=== PATIENT | male | born 1990 | race Caucasian/White ===

== ENCOUNTER 2018-12-29 14:38 | Emergency (ER) | payer OTHER | END 2018-12-29 17:10 | disposition left against medical advice (07) | LOC: ED 14:38 | DX: Z53.21 Procedure and treatment not carried out due to patient leaving prior to being seen by health care provider (principal) ==

== ENCOUNTER 2018-12-30 04:35 | Emergency (ER) | payer OTHER ==
[~2018-12-30] VITALS: Ht 175.3 cm; Wt 79.4 kg
[2018-12-30 04:39] VITALS: Ht 175.3 cm; Wt 79.4 kg
[2018-12-30 06:31] VITALS: BP 127/70
== END 2018-12-30 06:31 | disposition home or self-care (01) ==
LOC: ED 04:35
DX: R07.89 Other chest pain (principal); M79.672 Pain in left foot; F17.210 Nicotine dependence, cigarettes, uncomplicated
CPT/HCPCS: Q0092

== ENCOUNTER 2019-12-07 20:18 | Emergency (ER) | payer OTHER ==
[~2019-12-07] VITALS: Ht 175.3 cm; Wt 68.9 kg
[2019-12-07 20:24] VITALS: BP 142/80; Ht 175.3 cm; Wt 68.9 kg
== END 2019-12-07 21:49 | disposition left against medical advice (07) ==
LOC: ED 20:18
DX: N48.89 Other specified disorders of penis (principal)
CPT/HCPCS: 90715; J0696; J3486

== ENCOUNTER 2019-12-08 10:31 | Inpatient (IN) | payer OTHER ==
[~2019-12-08] VITALS: Ht 175.3 cm; Wt 69.9 kg
[2019-12-08 10:38] VITALS: Ht 175.3 cm; Wt 69.9 kg
--- NOTE | 2019-12-08 10:55 | NUR ---
PT BIB SISTER C/O PENILE PAIN S/P PUTTING "COCK RING" ON PENIS X 1WEEK. PER PT "I WAS SEEN YESTERDAY BUT LEFT BECAUSE I WAS HUNGRY. THIS IS HAS BEEN ON MY PENIS FOR ONE WEEK". PENIS NOTED INFLAMMED, RED AND DICHARGE AT HEAD OF PENIS AND BASE. PT DENIES ANY PROBLEM URINATING. PT AAOX4, RESP E/U, NO AD NOTED. AWAITING MD MAURO. WILL CONTINUE TO MONITOR.
--- NOTE | 2019-12-08 11:04 | NUR ---
MD CORREIA AT BEDSIDE AT THIS TIME. AWIATING FURTHER ORDERS.
--- NOTE | 2019-12-08 11:20 | NUR ---
LAB AT BEDSIDE FOR BLOOD CULTURE AT THIS TIME. WILL CONTINUE TO MONITOR.
--- NOTE | 2019-12-08 11:20 | NUR ---
PT REFUSED MEDICATION AND REPOTS "TAKE MY IV OUT I DONT NEED IT IN". MD BARKER AT BEDSIDE AT THIS TIME. WILL CONTINUE TO MONITOR.
[2019-12-08 11:48] LABS: PLATELET COUNT 353 x10^3mcL (130-400); RED CELL DISTRIBUTION WIDTH 12.5 % (11.5-14.5)
[2019-12-08 11:49] LABS: BAND NEUTROPHIL 0 % (0-10); BASOPHIL 1 % (0-2); CALCIUM 8.6 mg/dL (8.5-10.1); CARBON DIOXIDE 29.5 mmol/L (21-32); CHLORIDE SERUM 101 mmol/L (98-107); CREATININE SERUM 0.7 mg/dL (0.7-1.3); GFR1 > 60 mL/min; GLUCOSE SERUM 131 mg/dL (74-106); MONOCYTE 6 % (0-7); POTASSIUM SERUM 3.7 mmol/L (3.5-5.1); SEGMENTED NEUTROPHILS 72 % (37-75); SODIUM SERUM 136 mmol/L (136-145); rbc morphology (normal/abnorm) NORMAL (NORMAL)
[2019-12-08 11:54] LABS: ALKALINE PHOSPHATASE 123 U/L (46-116); ALT/SGPT 16 U/L (16-63); AST/SGOT 11 U/L (15-37); BILIRUBIN TOTAL 0.2 mg/dL (0.20-1.00); TOTAL PROTEIN, SERUM 7.1 g/dL (6.4-8.2)
--- NOTE | 2019-12-08 12:19 | NUR ---
MD CHANDRA AND MD CAMILO AT BEDSIDE DISCUSSING PLAN OF CARE AT THIS TIME. WILL CONTINUE TO MONITOR.
--- NOTE | 2019-12-08 12:51 | NUR ---
PT REQUESTED URINAL. PROVIDED ONE TO HIM
--- NOTE | 2019-12-08 13:02 | NUR ---
REPORT GIVEN TO CRYSTAL BENITES FROM OR. AWAITING FURTHER ORDERS. WILL CONTINUE TO MONITOR.
--- NOTE | 2019-12-08 13:04 | NUR ---
CLAIRFIED WITH PT ON LAST FOOD INTAKE AND PT REPORTS "I DONT KNOW LIKE 10 MINUTES BEFORE I GOT HERE". FASHION MODELDELMIS ROJAS MADE AWARE. WILL CONTINUE TO MONITOR.
--- NOTE | 2019-12-08 16:11 | NUR ---
RECEIVED PT VIA GURNEY FROM O/R, ACCOMPANIED BY RN AND TRANSPORTER. PT DROWSY, ORIENTED X 3 (PERSON, PLACE, PURPOSE), SLOW TO RESPOND; PT IS WITHDRAWN, RESPONDS TO SOME QUESTIONS BUT IGNORES MOST TEACHINGS, ADMITS TO HEARING VOICE OF GRANDMOTHER (CURRENTLY NOT HEARING VOICES). PT IS HOMELESS, SMOKES CIGARS, AND ADMITS TO METH USE. DENIES CHEST PAIN OR DISCOMFORT AT THIS TIME. NO ACUTE RESPIRATORY DISTRESS NOTED. F/C 16FR INSERTED 12/08/2019, DRAINING CLEAR YELLOW URINE, C/O "HESITANCY"; WHITE DISCHARGE NOTED TO PENILE HEAD AND CIRCULAR WOUND AROUND BASE 2/2 WASHER THAT WAS DIGGING INTO PT'S SKIN X1 WK (POSSIBLY LONGER) W/C WAS REMOVED RN ACCESS; WOUND COVERED W/ ABD PAD, MINIMAL SEROSANGUINOUS DRAINAGE; PT C/O PAIN UPON PALPATION; PENIS IS EDEMATOUS AND SEMI-SOFT. GENERALIZED WEAKNESS, AMBULATORY @ BASELINE, FALL RISK PROTOCOL IN PLACE. IV SITE LAC 18G, CDI. SIDE RAILS UP X 2, BED IN LOW POSITION, CALL LIGHT WITHIN REACH. WILL ENDORSE TO DELMIS NEW.
--- NOTE | 2019-12-08 16:38 | NUR ---
ASSISTED Pt TO BATHROOM FOR BM Pt STABLE DENIED ANY DIZZINESS STABLE AMULATION NOTED
[2019-12-08 17:17] VITALS: BP 130/84
--- NOTE | 2019-12-08 18:51 | NUR ---
Pt LYING IN BED TOLERATED DIET WELL. PETERSON CATHETER DRAINING TO GRAVITY ENZO URINE NOTED. PENIAL REMAINS SWOLLEN DRESSING IN PLACE Pt DENIES ANY PAIN AT THIS ITME. IV ON LAC PATENT AND INTACT NO REDNESS OR EDEMA. ALL NEEDS ATTENDED TO. SAFETY PRECAUTIONS IN PLACE. WILL ENDORSE CARE TO NIGHT RN
[2019-12-08 20:41] VITALS: BP 139/77
[2019-12-09 06:29] VITALS: BP 120/78
--- NOTE | 2019-12-09 07:00 | NUR ---
RECEIVED REPORT FROM NIGHT RN Pt DONNELL IN BED WITH EYES CLOSED BUT AROUSABLE IN NO APARENT DISTRESS. DRESSING INTACT TO PENILE CLEAN AND DRY. IV ON LAC PATENT AND INTACT. ON RA 100% LUNGS CTA BILAT. ABD SOFT AND FLAT ACTIVE IN ALL 4 QUADS. ALL NEEDS ATTENDED TO AT THIS TIME. BED IN LOWEST POSITION CALL LIGHT WITHIN REACH. WILL CONTINUE TO MONITOR.
[2019-12-09 09:10] LABS: CALCIUM 8.5 mg/dL (8.5-10.1); CARBON DIOXIDE 29.3 mmol/L (21-32); CHLORIDE SERUM 101 mmol/L (98-107); CREATININE SERUM 0.8 mg/dL (0.7-1.3); GFR1 > 60 mL/min; GLUCOSE SERUM 102 mg/dL (74-106); MAGNESIUM 1.9 mg/dL (1.8-2.4); PHOSPHOROUS 3.4 mg/dL (2.5-4.9); POTASSIUM SERUM 3.6 mmol/L (3.5-5.1); SODIUM SERUM 136 mmol/L (136-145)
--- NOTE | 2019-12-09 10:05 | NUR ---
DR MEZA AT BEDSIDE EVALUATING Pt
[2019-12-09 10:58] VITALS: BP 125/69
[2019-12-09 11:03] LABS: BASOPHIL % 0.3 % (0-2); PLATELET COUNT 339 x10^3mcL (130-400); RED CELL DISTRIBUTION WIDTH 13.4 % (11.5-14.5)
--- NOTE | 2019-12-09 12:41 | NUR ---
Pt C/O PAIN AT BASE OF PENIS ADMINISTERED MORPHINE IVP PER JUL Pt TOLERATED WELL. NO ADVERSE REACTIONS NOTED. SITTER AT BEDSIDE. WILL CONTINUE TO MONITOR.
[2019-12-09 13:34] VITALS: BP 117/63
--- NOTE | 2019-12-09 16:50 | NUR ---
Pt LYING IN BED RESTLESS BUT DIRECTABLE. EINSTRUCTED Pt TO NOT TOUCH HIS WOUND Pt CONTINUE TO TOUCH IT APPLIED LEONIDAS DRESSING. ALL NEEDS ATTENDED TO. BED IN LOWEST POSITION CALL LIGHT WITHIN REACH. WILL CONTINUE TO MONITOR.
[2019-12-09 17:24] VITALS: BP 117/73
--- NOTE | 2019-12-09 18:18 | NUR ---
SECOND ATTEMPT FOR DRESSING CHANGE Pt REFUSED. EDUCATED ON INFECTION RISK. Pt STILL REFUSED. PENIS STAMP MAKER NO S/S OF ANY INFECTION. ADMINISTERED MORPHINE IVP . Pt DENIES PAIN. PETERSON DRAINING TO GRAVITY . IV IN LAC PATENT AND INTACT. ALL NEEDS ATTENDED TO. WILL ENDORSE TO NIGHT RN
--- NOTE | 2019-12-09 19:15 | NUR ---
DR ENRIQUEZ AT BEDSIDE TO SEE PT. DISCUSSED PLAN OF CARE
--- NOTE | 2019-12-09 19:20 | NUR ---
RECIEVED PT RESTING IN BED WITH NO ACUTE DISTRESS NOTED FROM SHAQ RN, ASSESSMENT PERFORMED AT THIS TIME,(SEE SHIFT ASSESSMENT) PT IS A/OX4 NO COMPLAINTS OF BETTENCOURT OR DIZZINESS AT THIS TIME, PT ASKED IF IN PAIN AND REFUSED TO ANSWER, PT RESISTIVE TO CARE, NO SOB NOTED AT THIS TIME, IV TO THE LAC, ALL NEEDS ATTENDED TO AT THIS TIME, SAFETY PRECAUTIONS IN PLACE, WILL CONTINUE TO MONITOR
--- NOTE | 2019-12-09 19:35 | NUR ---
PT REFUSING WOUND CARE AT THIS TIME.
--- NOTE | 2019-12-09 20:22 | NUR ---
PT REFUSING ALL MEDICATIONS DR CAMARGO INFORMED.
--- NOTE | 2019-12-10 00:10 | NUR ---
PT RESTING IN BED WITH NO ACUTE DISTRESS NOTED, PT STILL REFUSING DRESSING ON PENILE WOUND. DR AWARE PT UNCOOPERATIVE WITH CARE
--- NOTE | 2019-12-10 04:00 | NUR ---
PT STILL REFUSING ABX, PT EDUCATED AGAIN TO NEED FOR MEDICATION BUT STILL REFUSING.
--- NOTE | 2019-12-10 04:34 | NUR ---
UPDATED DR CABRERA ABOUT PTS RESISTING ALL CARE, VITALS, MEDS, DRESSING CHANGES.
[2019-12-10 05:45] VITALS: BP 123/78
--- NOTE | 2019-12-10 05:51 | NUR ---
PT RESTED IN BED THROUGH NIGHT, PT REFUSED ALL CARE THROUGH NIGHT AFTER MULTIPLE ATTEMPTS TO GIVE MEDICATIONS AND DRESS PENILE WOUND, PHYSICIANS MADE AWARE AND PT STILL REFUSING ALL CARE. VSS, WILL CONTINUE TO MONITOR AND ENDORSE CARE TO ONCOMING RN
--- NOTE | 2019-12-10 08:30 | NUR ---
THE PATIENT IS ALERT AND ORIENTED X 2-3. HE HAS A PETERSON CATHETER 16 LAO, DRAINING WELL TO GRAVITY. NEW ORDERS FROM MD FOR URINALYSIS, URINE DRUG SCREEN, OBTAINED AND SENT TO LABORATORY. THE PATIENT ALSO HAS A WOUND TO THE PENILE AREA. CLEANSED WITH NORMAL SALINE AND WRAPPED AROUND WITH BETADINE MD ORDERED. WRAPPED AROUND WITH GAUZE, KERLIX, AND COBAN. PATIENT FELT A STINGING SENSATION, BUT WENT AWAY AFTER A FEW MINUTES. THE PATIENT WAS GIVEN ALL MEDICATIONS, PER MD ORDERS. WILL CONTINUE TO MONITOR.
[2019-12-10 09:04] LABS: BASOPHIL % 0.5 % (0-2); PLATELET COUNT 353 x10^3mcL (130-400); RED CELL DISTRIBUTION WIDTH 13.2 % (11.5-14.5)
[2019-12-10 09:07] LABS: CALCIUM 8.6 mg/dL (8.5-10.1); CARBON DIOXIDE 29.7 mmol/L (21-32); CHLORIDE SERUM 104 mmol/L (98-107); CREATININE SERUM 0.6 mg/dL (0.7-1.3); GFR1 > 60 mL/min; GLUCOSE SERUM 101 mg/dL (74-106); MAGNESIUM 2.2 mg/dL (1.8-2.4); POTASSIUM SERUM 4.3 mmol/L (3.5-5.1); SODIUM SERUM 139 mmol/L (136-145)
[2019-12-10 09:44] VITALS: BP 107/68
[2019-12-10 12:41] VITALS: BP 132/87
[2019-12-10 15:32] LABS: UA SPECIFIC GRAVITY 1.015 (1.005-1.035); microscopic required? YES; urine erythrocyte 2+ (NEGATIVE)
[2019-12-10 15:53] LABS: AMPHETAMINE QUAL UR NONE DETECTED (See below)
[2019-12-10 17:42] VITALS: BP 122/81
--- NOTE | 2019-12-10 19:00 | NUR ---
PATIENT RECIEVED IN BED ALERT AND ORIENTED X 2-3. PATIENT ARGUMENATIVE WITH RN DURING CARE. RN EDUCATED PATIENT TO PLAN OF CARE AND NEED FOR COMPLIANCY. PATIENT REFUSED IV ANTIBIOTICS. RN EDUCATED OF DX ISCHEMIC PENIS. PATIENT SLOW DURING CONVERSATION. PATIENT REFUSED WOUND CARE TREATMENT TO PENILE WOUND. PATIENT REFUSED ABT THERAPY. PATIENT YELLING OUTLOUD DURING CARE. DR. STEARNS NOTIFIED OF PATIENT NONCOMPLIANCY. INFORMED PHYSICIAN PATIENT UNCOOPERATIVE WITH CARE. PATIENT REFUSED IV ABT ZOSYN, VANCOMYCIN. REPORTED PATIENT BEHAVIOR OF NONCOMPLIANCE. FALL AND SAFETY PRECAUTIONS MAINTAINED.
--- NOTE | 2019-12-11 | NUR ---
PATIENT SLEEPING IN BED. REFUSED ALL MEDICATION. PATIENT ARGUMENATIVE WITH STAFF REFUSED RN PLAN OF CARE. PATIENT REQUEST FOR ROOM DOOR AND NO INTERACTIONS WITH STAFF. RESPIRATIONS EVEN AND NONLABORED. NO ACUTE DISTRESS. PATIENT REMAINS UNCOMPLAINT. FALL AND SAFETY PRECAUTIONS MAINTAINED.
--- NOTE | 2019-12-11 06:50 | NUR ---
PATIENT REFUSED TO SIGN REFUSAL TO PERMIT MEDICAL TREATMENT, IV ANTIBOTICS VANCOMYCIN AND ZOSYN. INFORMED PATIENT PHYSICIAN CHINTAN AND CHARGE NURSE NICOLE BENITES REGARDING PT REFUSAL TO PERMIT MEDICAL TREATMENT.
[2019-12-11 08:52] VITALS: BP 134/80
[2019-12-11 11:48] LABS: BASOPHIL % 0.6 % (0-2); PLATELET COUNT 384 x10^3mcL (130-400); RED CELL DISTRIBUTION WIDTH 13.3 % (11.5-14.5)
[2019-12-11 11:58] LABS: CARBON DIOXIDE 33.7 mmol/L (21-32); CHLORIDE SERUM 101 mmol/L (98-107); CREATININE SERUM 0.8 mg/dL (0.7-1.3); GFR1 > 60 mL/min; GLUCOSE SERUM 124 mg/dL (74-106); POTASSIUM SERUM 3.7 mmol/L (3.5-5.1); SODIUM SERUM 139 mmol/L (136-145)
--- NOTE | 2019-12-11 15:19 | NUR ---
At 0800, Pt refused nursing head to toe assessment after teaching.
--- NOTE | 2019-12-11 16:20 | NUR ---
Initial Nutrition Assessment: 252A NEW, RYAN 29M HR Consult: wound care Dx: Ischemic penis PMHx: Psychiatric disorder, schizophrenia PSHx: none Labs: (12/09) WBC 12.3H, Cr 0.6L, (12/07) AST 11L, Alk ph 123H, alb 3L Meds: Desyrel, Vancocin, Zosyn PRN meds: morphine, Zyprexa Diet: Regular diet PO intake since admission: 50-100% x 8 meals with average PO intake of 87.5% Ht: 175.26cm/69in Wt: 69.853kg/154lbs BMI: 22.7 Bed scale: not accessible IBW: 72.73kg/160lbs %IBW: 96.05% UBW: unknown Age: 29 Food Allergies: unknown Edema: edema noted to feet Last BM: 12/07 Skin: wound to penile head and circular wound around base of penis Jose: 20 Per H and P (12/07), Patient is a 29-year-old homeless male with a history of psychiatric disorder including schizophrenia who presented with ischemic injury of the penis due to constricting band at the base that has been left on approximately 1 week however may be longer. He states that he does have trouble voiding currently but however yesterday he was doing fine. He was previously in the ER however he left AMA and now returns after being urged by family member. Patient denies any recent covid contacts or travel. he will be admitted for surgical removal of the constricting band. Pt was admitted with dx: ischemic penile injury, h/o schizophrenia, moderate PCM, DVT RD Note (12/10) Per progress note (12/09), pt refused wound care last night, pt tolerating oral intake and stated that he was still hungry. Pt was seen lying in bed but not arousable. Pt's leg was on the cover of bed scale, so RD was not able to obtain bed scale weight. Per pt's RN, pt was eating 100% of his breakfast today, and pt requested more food because he was hungry. Pt did not exhibit signs of GI distress or chewing/swallowing difficulty. Problem with: N/V/D/C: none per RN Problems with: Chewing: Swallowing: None per RN Current appetite: good per RN Recent wt change: unknown %wt change: unknown Height: unknown Vitamin/Supplement use: unknown Special diet at home: unknown Physical activity: unknown Nutrition education given (specify specific nutrition education and handout given): not given at this time Food-drug interactions? Education given? n/a Estimated Nutritional Needs Based on current body weight (70kg) Energy: 2848-0310 kcal/day (30-35 kcal/kg for optimal wound healing) Protein: 72-108 g/day (1.25-1.5 g/kg for optimal wound healing) Fluid: 6640-7433 mL/day (1 mL/kcal) Nutrition Diagnosis: 1. Increased energy and protein needs r/t skin integrity a/e/b pt has wound to penile head and base of penis. Intervention 1. Recommend continue regular diet as tolerate 2. Recommend Uri BID for wound healing Recommendation will be followed up with MD. Monitor/Evaluate Goal: PO intake at least 75% of estimated needs Monitor: PO intake, Labs, GI function F/U in 3-5 days as moderate risk 8/6-8
--- NOTE | 2019-12-11 16:23 | NUR ---
1. Recommend continue regular diet as tolerate 2. Recommend Uri BID for wound healing Recommendation will be followed up with MD.
[2019-12-11 17:10] VITALS: BP 131/84
--- NOTE | 2019-12-11 19:07 | NUR ---
Pt is currently in bed sleeping. Pt refused head to toe assessment this shift. Requested F/C to be remove so he can go out for smoke. Pt made aware he's in the hospital and cannot go out for smoke due to his safety and will report to his doctor to order him Nicotine patch which pt agreed on Nicotine patch. Above reported to Dr Alfred who ordered Nicotine patch for pt. Pt then agreed to keep f/c in. Pt refused Zosyn and Vanco this afternoon-Dr Brito notified. Pt only eat and sleep. . Bed in low position and call light within reach. Will endorse care to oncoming shift RN.
--- NOTE | 2019-12-11 19:25 | NUR ---
CARE ASSUMED FROM OUTGOING RN. PT RESTING COMFORTABLY IN BED WITH EYES CLOSED. NO ACUTE DISTRESS NOTED. EVEN AND UNLABORED RESPIRATIONS ON RA. MEDSURG PT. IVL INTACT. PETERSON IN PLACE, DRAINING YELLOW URINE VIA GRAVITY. BED IN LOWEST POSITION. SIDE RAILS UPX2. CALL LIGHT WITHIN REACH. WILL CONTINUE TO MONITOR.
[2019-12-11 19:59] VITALS: BP 128/69
--- NOTE | 2019-12-12 00:09 | NUR ---
PT RESTING COMFORTABLY IN BED WITH EYES CLOSED. NO ACUTE DISTRESS NOTED. EVEN AND UNLABORED RESPIRATIONS ON RA. PETERSON PATENT DRAINING YELLOW URINE VIA GRAVITY. BED IN LOWEST POSITION. SIDE RAILS UPX2. CALL LIGHT WITHIN REACH. WILL CONTINUE TO MONITOR.
[2019-12-12 05:32] VITALS: BP 123/68
--- NOTE | 2019-12-12 06:27 | NUR ---
PT RESTED COMFORTABLY IN INTERVALS THROUGHOUT THE SHIFT. ALL NEEDS TENDED TO AND MET. ALL SCHEDULED MEDICATIONS GIVEN. EVEN AND UNLABORED RESPIRATIONS ON RA. REFUSED WOUND CARE AT THIS TIME, STATED WANTED TO SLEEP AND NOT BE DISTURB. PETERSON PATENT DRAINING YELLOW URINE VIA GRAVITY. BED IN LOWEST POSITION. SIDE RAILS UPX2. CALL LIGHT WITHIN REACH. WILL ENDORSE TO ONCOMING SHIFT.
[2019-12-12 08:28] VITALS: BP 133/83
--- NOTE | 2019-12-12 09:20 | NUR ---
Wound care evaluation not done. pt. refused. pt. is aax4.
[2019-12-12 12:16] VITALS: BP 127/87
[2019-12-12 16:18] VITALS: BP 121/76
--- NOTE | 2019-12-12 18:50 | NUR ---
Pt currently in bed on the phone talking to someone. Pt refused head to toe assessment. Pt agreed for nurse to apply Nicotine patch on this morning but refused IV Vanco and Zosyn this afternoon. Pt has order for nurse to remove dressing from penis and apply Bacitracin but pt refused. Pt informed nurse the doctor came in and removed the dressing and will not allow any one to touch him. Bed in low position and call light within reach. Will continue to monitor and endorse care to oncoming shift.
[2019-12-12 20:00] VITALS: BP 116/72
[2019-12-13 05:34] VITALS: BP 121/79
--- NOTE | 2019-12-13 07:46 | NUR ---
RECEIVED PT FROM NIGHT NURSE. PER SHIFT CHANGE REPORT, PT HAS BEEN UNCOOPERATIVE AND REFUSING CARE. GREETED PT AND WORKED TOWARD MEETING ALL BASIC NEEDS. WILL ASSESS WOUNDS FURTHER IF COOPERATIVE. CURRENTLY EATING BREAKFAST. APPEARS COMFORTABLE AND DOES NOT CONFIRM BEING IN PAIN WHEN ASKED. PETERSON CATHETER DRAINING YELLOW URINE. SAFETY PRECAUTIONS IN PLACE. WILL CONTINUE TO MONITOR.
[2019-12-13 08:28] VITALS: BP 156/69
[2019-12-13 18:36] VITALS: BP 127/69
--- NOTE | 2019-12-13 19:30 | NUR ---
WOUND CARE WAS DONE @1200. DRESSING WAS TREATED WITH NS AND REMOVED ORDERED. WOUND BED WAS PINK WITH MINIMAL BLOOD AND NO SLOUGH PRESENT. BACITRACIN OINTMENT WAS APPLIED ORDERED. PT WAS EDUCATED ABOUT POSSIBLE COMPLICATIONS OF WORSENING INFECTION. HE VERBALIZED UNDERSTANDING AND HE ALLOWED AN IV START IN HIS RFA. IV ABX WERE INFUSED ORDERED AND NOW SALINE LOCKED. IV SITE WNL AND PATENT. PETERSON CATHETER WAS DC ORDERED AT THE TIME OF WOUND CARE. HE HAS BEEN VOIDING NORMALLY SINCE THEN AND IS AMBULATORY TO BATHROOM. BM DURING SHIFT. HE SIGNED RELEASE TO BE DC TO FORMER HOMELESS SITUATION, GIVEN BY KAYLA. HE WAS GIVEN INSTRUCTIONS ABOUT HOUSING HE PREFERS AND RETAINED PHONE NUMBER TO FIND OUT AVAILABILITY. CURRENTLY THERE IS NONE. CURRENTLY RESTING COMFORTABLY. SAFETY PRECAUTIONS IN PLACE. ENDORSED TO NIGHT NURSE.
--- NOTE | 2019-12-13 20:07 | NUR ---
REPORT FROM LALA BENITES. PT AXOX4. NO S/S OF DISTRESS OR DISCOMFRT. BREATHING EVEN ON RA 99% SPO2. CTA. GENERAL WEAKNESS BUT ABLE TO AMBULATE. IV IS RFA 22G SL NO S/S OF INFILTRATION. PT IS MS, NO C/O CP OR PALPITATIONS. PT DENIES PAIN. PT HAD A BM DURING THE DAY SHIFT. SKIN IS WARM AND DRY. PT HAS PENILE WOUND AT THE BASE WITH EDEMA, TREVOR. PT REFUSED EXAMINATION AT THIS TIME BUT DID SAY HE APPLIED BACITRACIN CREAM THIS AFTERNOON WITH THE DAY NURSE LALA. PT RADIAL AND PEDAL PULSES ARE STRONG. BED IN LOW POSITION, SIDE RAILS UPX2, CALL LIGHT WITHIN REACH.
[2019-12-13 20:21] VITALS: BP 119/73
--- NOTE | 2019-12-14 00:51 | NUR ---
PT RESTING, EYES CLOSED. NO S/S OF DISTRESS OR DISCOMFORT. PT TOLERATING ABX. PT BREATHING EVEN ON RA. 98% SPO2. IV PATENT, NO S/S OF INFILTRATION. BED IN LOW POSITION. SIDE RAIL UPX2, CALL LIGHT WITHIN REACH.
[2019-12-14 05:00] VITALS: BP 116/60
--- NOTE | 2019-12-14 05:53 | NUR ---
PT AWAKE. AXOX4 NO S/S OF DISTRESS OR DISCPMFORT. PT PULLED IV OUT AND IT WAS REPLACED LFA 20 G BLOOD RETURN PRESENT AND WAS ABLE TO FLUSH. PT BREATHING EVEN ON RA SPO2 99% MED SURG PT. PT DENIES PAIN AT THIS TIME. BED IN LOW POSITION, SIDE RAILS UPX2, CALL LIGHT WITHIN REACH. PT REFULSED BLOOD DRAW THIS MORNING. WILL CONTINUE TO MONITOR PATIENT AND OFFER SUPPORT.
--- NOTE | 2019-12-14 08:06 | NUR ---
RECEIVED PT FROM NIGHT NURSE. PT JUST WAKING UP AND EATING BREAKFAST. AAOX4. WOUND TIN TIE MACHINE OPERATOR AUTOMATIC. WILL APPLY OINTMENT SCHEDULED. HE DENIES PAIN CURRENTLY. INSTRUCTED TO USE CALL LIGHT AT BEDSIDE FOR ANY NEEDS. PER NIGHT NURSE, PT DC IV DURING THE NIGHT. NEW ACCESS IS ALSO ON RFA. HE IS AMBULATORY AND CAN PROVIDE SELF CARE FOR ADLS. SAFETY PRECAUTIONS IN PLACE. WILL CONTINUE TO MONITOR.
[2019-12-14 08:18] VITALS: BP 137/77
[2019-12-14] MEDS ORDERED: BACOINT TOP (10:50)
[2019-12-14] MEDS ORDERED: ZYP10 PO (10:50)
[2019-12-14] MEDS ORDERED: TRA50 PO (10:52)
[2019-12-14] MEDS ORDERED: CLEOCIN HCL300 MG PO (10:55)
[2019-12-14 13:21] VITALS: BP 137/77
--- NOTE | 2019-12-14 17:42 | NUR ---
PT WAS EDUCATED ABOUT CARE OF WOUND AND WAS ABLE TO DEMONSTRATE AND VERBALIZED UNDERSTANDING. THIS IS ALSO TRUE OF ALL OTHER DC INSTRUCTIONS, INCLUDING NEW MEDICATIONS, FOLLOW UP CARE, AND WHEN TO SEEK FURTHER EMS SERVICES. THE PT IS HOMELESS, IN COLLABORATION WITH CANDLE WRAPPING MACHINE OPERATOR AND CASE MANAGEMENT, WAS GIVEN CLOTHES TO WEAR, BUS PASSES FOR FOLLOW UP APPOINTMENTS, AND FOOD. WOUND CARE WAS DONE, WITH BACITRACIN APPLIED ORDERED, AND LEFT LUMBER GRADER. HE REFUSED SCHEDULED ABX. IV WAS DC WITH CATHETER INTACT. HE WAS AAOX4 AND AMBULATORY, ABLE TO SELF CARE AT DC.
== END 2019-12-14 17:42 | disposition home or self-care (01) | DRG 483 ==
LOC: ED 10:31 → MU 12:18
PROVIDERS: Emergency Medicine; Urology; ADMIT Internal Medicine; ATTEND Internal Medicine
PROC: 0VCS0ZZ Extirpation of Matter from Penis, Open Approach (ICD-10-PCS; principal; 2019-12-08 17:00)
DX: S39.848A Other specified injuries of external genitals, initial encounter (principal); E44.0 Moderate protein-calorie malnutrition; T79.A9XA Traumatic compartment syndrome of other sites, initial encounter; F20.9 Schizophrenia, unspecified; F15.10 Other stimulant abuse, uncomplicated; F19.90 Other psychoactive substance use, unspecified, uncomplicated; R33.9 Retention of urine, unspecified; Z56.0 Unemployment, unspecified; Z68.22 Body mass index [BMI] 22.0-22.9, adult; Z59.0 Homelessness; D72.829 Elevated white blood cell count, unspecified
CPT/HCPCS: G0378; J1630; J2175; J2250; J2270; J2543; J3010; J3370; J7050; J7120

== ENCOUNTER 2019-12-23 09:22 | Inpatient (IN) | payer OTHER ==
[~2019-12-23] VITALS: Ht 175.3 cm; Wt 71.7 kg
[~2019-12-23 09:22] MED LIST: BACOINT TOP; CLEOCIN HCL300 MG PO; TRA50 PO; ZYP10 PO
[2019-12-23 09:24] VITALS: Ht 175.3 cm; Wt 71.7 kg
--- NOTE | 2019-12-23 09:30 | NUR ---
PT BIB AMBULANCE BLS FOR 5150 HOLD. PER MEDIC ERICH BARR NOTED PT WALKING IN STREET WITH SHOPPING CART AND WAS PLACED ON HOLD. ERICH BARR CONTACTED PT SISTER AND PT REPROTED "I WANT TO JUMP OFF A BRIDGE". PT ARRIVED TO ROOM 5 AND DENIES ANY SI/HI AT THIS TIME. PT AAOX4, RESP E/U NO AD NOTED. ALL HARMFUL ITESM REMOVED FROM PT AND PLACED IN RADIO ROOM. PT IN CLOSE VIEW OF NURSES STATION. WILL CONTINUE TO MONITOR.
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
--- NOTE | 2019-12-23 09:36 | NUR ---
COLLECTED PATIENT ITEMS AND PUT IN RADIO ROOM
--- NOTE | 2019-12-23 09:47 | NUR ---
PROVIDED URINAL TO PT AT THIS TIME AND PT ABLE TO PROVIDE URINE SAMPLE AT THIS TIME. NO AD NOTED. WILL CONTINUE TO MONITOR. 500 CC URINE OUTPUT OF CLEAR YELLOW URINE NOTED.
--- NOTE | 2019-12-23 09:55 | NUR ---
XR AT BEDSIDE FOR XR OF LEFT WRIST AT THIS TIME.
--- NOTE | 2019-12-23 10:16 | NUR ---
LAB AT BEDSIDE FOR BLOOD DRAW AT THIS TIME.
[2019-12-23 10:38] LABS: BASOPHIL % 1.2 % (0-2); PLATELET COUNT 330 x10^3mcL (130-400); RED CELL DISTRIBUTION WIDTH 13.3 % (11.5-14.5)
--- NOTE | 2019-12-23 10:40 | NUR ---
TELE PSYCH PLACED TO BEDSIDE AT THIS TIME, COMMUNITY SERVICE SPECIALIST INFORMED. PER MD SAXENA TO SET UP TELE PSYCH. AWAITING FURTHER ORDERS. WILL CONTINUE TO MONITOR.
[2019-12-23 10:49] LABS: CALCIUM 8.1 mg/dL (8.5-10.1); CARBON DIOXIDE 28.7 mmol/L (21-32); CHLORIDE SERUM 107 mmol/L (98-107); CREATININE SERUM 0.7 mg/dL (0.7-1.3); GFR1 > 60 mL/min; GLUCOSE SERUM 97 mg/dL (74-106); POTASSIUM SERUM 3.9 mmol/L (3.5-5.1); SODIUM SERUM 141 mmol/L (136-145)
[2019-12-23 10:55] LABS: UA SPECIFIC GRAVITY 1.025 (1.005-1.035); microscopic required? YES; urine erythrocyte NEGATIVE (NEGATIVE)
[2019-12-23 10:55] LABS: ALKALINE PHOSPHATASE 111 U/L (46-116); ALT/SGPT 24 U/L (16-63); AST/SGOT 15 U/L (15-37); BILIRUBIN TOTAL 0.3 mg/dL (0.20-1.00); LIPASE 66 IU/L (73-393); TOTAL PROTEIN, SERUM 6.6 g/dL (6.4-8.2)
[2019-12-23 10:57] LABS: ALBUMIN 3.1 g/dL (3.4-5.0)
[2019-12-23 11:04] LABS: AMPHETAMINE QUAL UR POSITIVE (See below)
--- NOTE | 2019-12-23 11:16 | NUR ---
OK PER MD SAXENA TO PROVIDE FOOD TO PT. HANS AND JUICE PROVIDED TO PT AT THIS TIME. NO AD NOTED. WILL CONTINUE TO MONITOR.
--- NOTE | 2019-12-23 11:28 | NUR ---
TELE PSYCH IN PRGORESS AT THIS TIME AND REPORTS "I WILL FAX OVER MY REPORT IN 10-15MINUTES". MD SAXENA MADE AWARE.
--- NOTE | 2019-12-23 11:39 | NUR ---
PT CONSUMED 100% SANDHWICH. NO AD NOTED. WILL CONTINUE TO MONITOR.
--- NOTE | 2019-12-23 12:30 | NUR ---
LUNCH TRAY PROVIDED TO PT AT THIS TIME.
--- NOTE | 2019-12-23 14:44 | NUR ---
PT NOTED SLEEING IN POSITION OF COMFORT IN ER [facility] AT THIS TIME, VSS. NO AD NOTED. WILL CONTINUE TO MONITOR.
--- NOTE | 2019-12-23 15:04 | NUR ---
PROVIDED PT WITH URINAL AT BEDSIDE AT THIS TIME. PT PROVIDED 500CC URINE OUTPUT AT THIS ITME. WILL CONTINUE TO MONITOR.
--- NOTE | 2019-12-23 15:10 | NUR ---
ATTEMPTED TO PLACED VITALS ON PT AT THIS TIME. PT REPORTS "NO WHY DONT YOU FUCK OFF". WILL CONTINUE TO MONITOR.
--- NOTE | 2019-12-23 15:12 | NUR ---
BERTIN TAPIA ATTEMPTED TO PLACE BLOOD PRESSURE CUFF ON PT AND PT NOTED THROWING BP CUFF ON FLOOR ANF REPORTS "FUCK OFF". ATTEMPTED TO RE ORIENT PT. UNSUCCESSFULL. WILL CONTINUE TO MONITOR.
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
--- NOTE | 2019-12-23 17:11 | NUR ---
CONTACTED RUBEN BARR TO CORRECT ORIGINAL 5150 FORM AND CHASE WITH FREIGHT UNLOADER .PER FREIGHT UNLOADER "" I AM GOING TO CONTACT THE OFFICER THE OFFICER WHO WROTE THE ORIGINAL FORM AND GET HIM TO CORRECT IT. FREIGHT UNLOADER UNABLE TO GIVE ETA. CLINICAL PHARMACIST MADE AWARE.
--- NOTE | 2019-12-23 17:18 | NUR ---
DINNER TRAY PROVIDED TO PT AT THIS TIME.
--- NOTE | 2019-12-23 17:59 | NUR ---
PT NOTED LIFTING HOSPITAL GOWN UP AND EXPOSING HIM SELF AND REPORTS "YOU WANT THIS FUCKING AMBROSE". RE DIRECTED PT BACK TO ROOM. ENTERTAINMENT MUSICIAN MADE AWARE.
--- NOTE | 2019-12-23 18:25 | NUR ---
PT BECAME COMBATIVE. UNABLE TO RE ORIENT PT.
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
--- NOTE | 2019-12-23 19:07 | NUR ---
REPORT GIVEN TO NAI BENITES. RN TO ASSUME CARE OF PT AT THIS TIME.
--- NOTE | 2019-12-23 19:41 | NUR ---
PT RESTING IN BED WITH EYES CLOSED AND BREATHS EVEN AND UNLABORED.
--- NOTE | 2019-12-23 20:44 | NUR ---
PT RESTING IN BED WITH NO SIGNS OF DISTRESS.
--- NOTE | 2019-12-23 21:01 | NUR ---
UROLOGIST AT BEDSIDE FOR EXAM.
--- NOTE | 2019-12-23 21:54 | NUR ---
PT RESTING ON BACK WITH BREATHS EVEN AND UNLABORED.
--- NOTE | 2019-12-23 22:51 | NUR ---
PT RESTING WITH EYES CLOSED WITH NO SIGNS OF DISTRESS.
--- NOTE | 2019-12-24 00:07 | NUR ---
PT NOTED TO BE SLEEPING WITH BREATHS EVEN AND UNLABORED.
--- NOTE | 2019-12-24 00:10 | NUR ---
PT NOTED TO BE SLEEPING IN BED WITH BREATHS EVEN AND UNLABORED.
--- NOTE | 2019-12-24 00:49 | NUR ---
PT LYING ON BACK WITH EYES CLOSED WITH NO SIGNS OF DISTRESS.
--- NOTE | 2019-12-24 01:26 | NUR ---
PT RESTING ON GURNEY, REMOVED BILATERAL ANKLE RESTRAINTS. NO S/S OF DISTRESS. RESP E/U. VISIBLE CHEST RISE AND FALL. WILL CONTINUE TO MONITOR.
--- NOTE | 2019-12-24 02:17 | NUR ---
PT SLEEPING ON GURNEY IN POSITION OF COMFORT. NO S/S OF DISTRESS. RESP E/U. WILL CONTINUE TO MONITOR.
--- NOTE | 2019-12-24 04:52 | NUR ---
PT REQUESTED URINAL, PT PROVIDED URINAL. EMT YESNIA OUTSIDE ROOM TO ASSIST PT IF NEEDED. NO S/S OF DISTRESS. RESP E/U. WILL CONTINUE TO MONITOR.
--- NOTE | 2019-12-24 06:58 | NUR ---
PT SLEEPING ON GURNEY, CHANGING POSITIONS FREQUENTLY. NO S/S OF DISTRESS. RESP E/U. PT IN SIGHT OF NURSES STATION. WILL CONTINUE TO MONITOR.
--- NOTE | 2019-12-24 07:30 | NUR ---
RECEIVED SLEEPING OPENS EYES ON VERBAL STIMULI, WANTS TO SLEEP.,SOFT RESTRAINTS INTACT, CAPILLARY REFILL NORMAL,RESP. EASY, CARDIAC MONIOTR SB,RATE 58/MINUTE,SKIN WARM AND DRY TO TOUCH, PER DR GARCIA PT MEDICALLY CLEAR, WILL CONTINUE TO MONITOR
--- NOTE | 2019-12-24 09:28 | NUR ---
REMAINS SLEEPING DOES NOT WANT TO BE DISTURBED,
--- NOTE | 2019-12-24 11:24 | NUR ---
AWAKE ALERT ORIENTED, STATED EELING HUNGRY ,SANDWICH PROVIDED WITH JUICE, OFF RESTRAINTS, SEEN BY UROLOGIST ,,WILL CONTINUE TO MONITOR
--- NOTE | 2019-12-24 20:58 | NUR ---
THIS STEEL ANALYST GAVE REPORT TO DELMIS VASQUEZ PRIMARY RN INOCENCIO WAS UNAVAILABLE. PT REFUSED PIV PLACEMENT PRIOR TO LEAVING ER FOR IP ADMISSION. PT STABLE FOR IP ADMISSION TO [facility].
[2019-12-24 21:23] VITALS: BP 111/65
--- NOTE | 2019-12-24 21:47 | NUR ---
RECEIVED PT FROM ER, PT ADMIT FOR PSYCHOSIS, 5150, PT IS A/O X3, VERBAL RESPONSIVE. LUNG SOUND CLEAR BILATERAL, NO COUGH, NO SOB. PT DENY ANY CHEST PAIN OR DISCOMFORT. BOWEL SOUND PRESENT ALL 4 QUADRANTS, NO DISTENTION, NO TENDER. THERE IS HEALING WOUND AT BASE OF PENIS. SWELLING AT PENIS SHAFT IS NOTED. PT DENY ANY DIFFICULITY TO URINATE BUT C/O PAIN AT WOUND 5/10. PT DENY ANY SUICIDAL IDEA OR HALLUCIATION AT THIS MOMENT. PT REFUSED IV ACCESS. SITTER AT BEDSITE. ALL ADLS ASSIST, ALL NEED MET, CALL [facility] IN [place], WILL CONTINUE TO MONITOR.
--- NOTE | 2019-12-24 21:54 | NUR ---
PT. REFUSING NIGHT MEDICATION ZYPREXA. PT .STATED THAT HE DOES NOT TAKE PILLS.
--- NOTE | 2019-12-25 02:34 | NUR ---
SITTER REMAINS AT BEDSIDE. PT. SLEEPING, EYES CLOSED. PT. REMAINS WITHOUT IV ACCESS. HE HAS REFUSED SINCE ADMISSION. CALL LIGHT REMAINS WITHIN REACH.
--- NOTE | 2019-12-25 03:08 | NUR ---
PT. GETTING LOUD AND SHOUTING AT STAFF. PT. STATING THAT HE IS HERE FOR HIS PENIS AND SHOULD NOT BE 51/50, QUESTIONING 51/50 STATUS. PT. AGGRESSIVE WITH REVENUE ACCOUNTANT. PT. WALKED OUT OF ROOM AND WAS "LOOKING FOR A PHONE". PT. REDIRECTED TO ROOM. I SPOKE WITH PATIENT TO RECIFY HIS MOOD AND CLAM HIM. PT. GOT BACK TO BED. CHARGE NURSE MADE AWARE OF BEHAVIOR AND AGGRESSIVE MOOD. CHARGE NURSE WAS ABLE TO SPEAK WITH HIM REGARDING HIS BEHAVIOR AND AGGRESSIVE MANNER. PT. VERBALLY AGREED THAT HE WILL BE RESPECTFUL OF STAFF. PT. IN BED DRINKING SODA AT THIS TIME. SITTER IN ROOM AT DOOR. CALL LIGHT REMAINS WITHIN REACH.
--- NOTE | 2019-12-25 06:23 | NUR ---
PT. WITH MOOD SWINGS THROUGHOUT THE SHIFT, VERY AGRESSIVE VERBALLY AT TIMES AND USING PROFANITY AT SITTER. PT. THREATENS TO LEAVE AMA EACH TIME HE WAS TOLD THAT WE WERE OUT OF PARTICULAR FOODS LIKE SANDWICHES AND CRACKERS. CRACKERS WERE OBTAINED FROM ANOTHER UNIT TO SATISFIY PATIENT, ENCOURAGING HIM TO STAY. PT. STILL REFUSES IV CATH TO BE INSERTED. SITTER REMAINS AT BEDSIDE. CALL LIGHT WITHIN REACH. WILL ENDORSE PT. CARE TO INCOMING NURSE.
--- NOTE | 2019-12-25 10:57 | NUR ---
PATIENT IS A 29YEAR OLD MALE, THAT HAS A AGITATED AND AGRESSIVE MOOD, WAS TRANSFFERED TO THE FLOOR LAST NIGHT. WAS ON A 5150 HOLD BECAUSE HE WAS FOUND ON THE [address]RE[address] 911 WAS CALLED. HE HAS A HISTORY OF METH ABUSE AND SCHIZOPHRENIA. 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 REFUSED AM MEDS WITH ME. SECURITY WAS CALLED BECAUSE PATIENT PERSISTED TO CLOSE DOOR ON THE 1:1 SITTER AT BEDSIDE. DOOR IS OPEN PATIENT IS SLEEPING AT THIS TIME. PREPARING PATIENT FOR DC PLANNING PER NOC SHIFT IS GOAL FOR TODAY.
--- NOTE | 2019-12-25 15:54 | NUR ---
Called and spoke to Anitha/RN at facility. Received hold by fax. Called assessing bed situation for placement. Called the following previous facilities to check status. [facility] - Patient is on waiting list. Awaiting Covid results [facility] - Have intake will not review until Covid results are obtained [facility] - We dont keep intake on waiting lists, we are full at this time [facility]/ Refaxed, will need results of Covid Will keep facility updated with any information
[2019-12-25 19:52] VITALS: BP 111/52
[2019-12-26 04:28] VITALS: BP 115/68
--- NOTE | 2019-12-26 04:51 | NUR ---
Still no beds at any of the designated area.
--- NOTE | 2019-12-26 06:50 | NUR ---
[facility] to continue looking for placement for this pt. No openings overnight per asphalt paving machine operator report. will contact unit with any updates.
--- NOTE | 2019-12-26 12:02 | NUR ---
PATIENT IS A 29 YEAR OLD MALE BROUGHT IN BY POLICE AFTER BEING FOUND UNCONSIOUS ON THE STRE[address]. POSITIVE FOR METH ON [facility]. HX OF COMPARTMENT SYNDROME ON THE PENIS WITH SOME SWELLING NOTED +1. NO PAIN ON AM ASSESSMENT, SITTER AT BEDSIDE THIS AM. RUPERTO QUESADA WAS ABLE TO PUT A NEW 5150 HOLD FOR [facility] THAT WAS UPDATED THIS AM FOR DISCHARGE PLANNING. REFUSED ALL MEDS THIS AM.
--- NOTE | 2019-12-26 20:40 | NUR ---
RECEIVED REPORT FROM OUTGOING NURSE. RECEIVED PATIENT IN BED WITH 1:1 SITTER.AWAKE,ALERT,AND ORIENTED .SKIN WARM AND DRY TO TOUCH .RESPIRATION EVEN AND UNLABORED,NO RESPIRATORY DISTRESS. PATIENT REFUSED PM CARE AND VITAL SIGNS CHECKED. CALL LIGHT WITHIN REACH.
--- NOTE | 2019-12-26 21:40 | NUR ---
Call Center notified floor nurse Noemí BENITES , At this time there are still no vacancy at any of the designated facilities will continue to look for placement.
--- NOTE | 2019-12-27 07:40 | NUR ---
RECEIVED PATIENT SLEEPING IN BED, AROUSABLE TO TOUCH. PATIENT AOX3, DENIES HEADACHE. PATIENT DENIES SOB ON ROOM AIR, LUNG SOUNDS CTA, PT BREATHING E/U. PATIENT DENIES PAIN AT THIS TIME. NO IV ACCESS NOTED, PER PREVIOUS NURSE PATIENT REFUSED. CALL LIGHT WITHIN REACH, BED IN LOW POSITION, WILL CONTINUE TO MONITOR.
--- NOTE | 2019-12-27 08:25 | NUR ---
PATIENT REFUSED ZYPREXA, PATIENT STATED HE DOESNT TAKEIT AT HOME AND DIDNT WANT IT. EDUCATED PATIENT ON THE MEDICATIONS, PATIENT STILL REFUSED AT THIS TIME.
[2019-12-27 08:30] VITALS: BP 123/73
--- NOTE | 2019-12-27 08:44 | NUR ---
There are currently no beds. [facility] working on placement.
--- NOTE | 2019-12-27 10:58 | NUR ---
Received call from Blow Torch Burner Marva. Per Marva the patient's hold is being discontinued and the patient will be going home.
[2019-12-27 11:10] VITALS: BP 123/73
[2019-12-27] MEDS ORDERED: BACOINT TOP (12:00)
--- NOTE | 2019-12-27 12:20 | NUR ---
PATIENT RECEIVED COPY OF DISCHARGE INSTRUCTIONS, PATIENT UNDERSTANDS AND AGREES WITH D/C INSTRUCTIONS & PLAN OF CARE, INCLUDING MEDICATIONS AND FOLLOW UP CARE. ALL QUESTIONS AND CONCERNS ADDRESSED. ORDER PATIENT FOOD TO GO BUT WAS REFUSING BECAUSE HE WANTED TO LEAVE ALREADY. [place]OTHS WAS PROVIDED FOR THE PATIENT AND A BUS PASS WAS GIVEN. PATIENT WAS TAKEN DOWN BY DIRECTOR FRANCHISE SALES.
== END 2019-12-27 12:23 | disposition home or self-care (01) | DRG 861 ==
LOC: ED 09:22 → MU 12-24 16:33
PROVIDERS: Emergency Medicine; ADMIT Internal Medicine; ATTEND Internal Medicine
DX: R41.82 Altered mental status, unspecified (principal); F20.9 Schizophrenia, unspecified; F15.10 Other stimulant abuse, uncomplicated; R19.05 Periumbilic swelling, mass or lump; Z20.828 Contact with and (suspected) exposure to other viral communicable diseases; Z91.14 Patient's other noncompliance with medication regimen; Z59.0 Homelessness; Z56.0 Unemployment, unspecified
CPT/HCPCS: G0378; G0480; J2060; Q0092; U0003-CS

== ENCOUNTER 2020-02-14 02:19 | Emergency (ER) | payer OTHER ==
[~2020-02-14] VITALS: Ht 167.6 cm; Wt 68.0 kg
[2020-02-14 02:27] VITALS: Ht 167.6 cm; Wt 68.0 kg
[2020-02-14 04:50] LABS: CALCIUM 7.9 mg/dL (8.5-10.1); CARBON DIOXIDE 28.3 mmol/L (21-32); CHLORIDE SERUM 105 mmol/L (98-107); CREATININE SERUM 0.9 mg/dL (0.7-1.3); GFR1 > 60 mL/min; GLUCOSE SERUM 131 mg/dL (74-106); POTASSIUM SERUM 3.3 mmol/L (3.5-5.1); SODIUM SERUM 139 mmol/L (136-145)
[2020-02-14 04:55] LABS: BASOPHIL % 0.5 % (0-2); PLATELET COUNT 311 x10^3mcL (130-400); RED CELL DISTRIBUTION WIDTH 14.2 % (11.5-14.5)
[2020-02-14 05:01] LABS: ALKALINE PHOSPHATASE 123 U/L (46-116); ALT/SGPT 20 U/L (16-63); AST/SGOT 18 U/L (15-37); BILIRUBIN TOTAL 0.34 mg/dL (0.20-1.00); TOTAL PROTEIN, SERUM 6.4 g/dL (6.4-8.2)
[2020-02-14 06:13] VITALS: BP 110/60
[2020-02-14 06:16] LABS: AMPHETAMINE QUAL UR POSITIVE (See below)
== END 2020-02-14 06:13 | disposition home or self-care (01) ==
LOC: ED 02:19
PROVIDERS: Emergency Medicine
DX: F15.959 Other stimulant use, unspecified with stimulant-induced psychotic disorder, unspecified (principal)
CPT/HCPCS: G0480; J1630; Q0092

== ENCOUNTER 2020-06-18 18:16 | Emergency (ER) | payer OTHER ==
[~2020-06-18] VITALS: Ht 172.7 cm; Wt 70.3 kg
[2020-06-18 18:23] VITALS: Ht 172.7 cm; Wt 70.3 kg
[2020-06-18 18:47] LABS: BASOPHIL % 0.9 % (0.2-1.5); PLATELET COUNT 234 x10^3mcL (152-348); RED CELL DISTRIBUTION WIDTH 13.7 % (12.1-16.2)
[2020-06-18 18:48] LABS: UA SPECIFIC GRAVITY >=1.030 (1.005-1.035); microscopic required? YES; urine erythrocyte TRACE (NEGATIVE)
[2020-06-18 18:51] LABS: CALCIUM 8.3 mg/dL (8.5-10.1); CHLORIDE SERUM 110 mmol/L (98-107); CREATININE SERUM 0.9 mg/dL (0.7-1.3); GFR1 > 60 mL/min; GLUCOSE SERUM 75 mg/dL (74-106); POTASSIUM SERUM 3.6 mmol/L (3.5-5.1); SODIUM SERUM 148 mmol/L (136-145)
[2020-06-18 18:56] LABS: ALBUMIN 3.7 g/dL (3.4-5.0); ALKALINE PHOSPHATASE 97 U/L (46-116); ALT/SGPT 30 U/L (16-63); AST/SGOT 21 U/L (15-37)
[2020-06-18 19:05] LABS: AMPHETAMINE QUAL UR POSITIVE (See below)
[2020-06-19 07:07] VITALS: BP 98/57
== END 2020-06-19 07:07 | disposition home or self-care (01) ==
LOC: ED 18:16
PROVIDERS: Specialist
DX: F19.10 Other psychoactive substance abuse, uncomplicated (principal); R41.82 Altered mental status, unspecified
CPT/HCPCS: G0480; J1630; J7030